=== PATIENT | female | born 1985 | race Caucasian/White ===

== ENCOUNTER 2019-01-20 20:58 | Emergency (ER) | payer OTHER ==
[~2019-01-20] VITALS: Ht 170.2 cm; Wt 53.5 kg
[~2019-01-20 20:58] MED LIST: [UNRECOGNIZED DRUG - REMARK]
== END 2019-01-20 22:48 | disposition home or self-care (01) ==
LOC: ER 20:58
DX: N91.2 Amenorrhea, unspecified (principal); N39.0 Urinary tract infection, site not specified; M54.5 Low back pain